=== PATIENT | male | born 1965 | race Caucasian/White ===

== ENCOUNTER 2016-05-17 09:47 | Emergency (ER) | payer OTHER ==
[~2016-05-17 09:47] MED LIST: ACETAMINOPHEN325 MG PO; ASPIR 8181 MG PO; COREG6.25 MG PO; CYCLOBENZAPRINE10 MG PO; JANUVIA100 MG PO; KLONOPIN0.5 MG PO; LANTUS100 UNIT/1 SQ; LIPITOR80 MG PO; NEURONTIN800 MG PO; PLAVIX75 MG PO; PRINIVIL10 MG PO; PROZAC40 MG PO; TRAZODONE HCL100 MG PO; VENTOLIN HFA8 GM IH
== END 2016-05-17 10:26 | disposition home or self-care (01) ==
LOC: ER 09:47
DX: S63.502A Unspecified sprain of left wrist, initial encounter (principal); E11.9 Type 2 diabetes mellitus without complications; I25.2 Old myocardial infarction; I11.0 Hypertensive heart disease with heart failure; I50.9 Heart failure, unspecified; E66.01 Morbid (severe) obesity due to excess calories; F17.210 Nicotine dependence, cigarettes, uncomplicated; Z87.442 Personal history of urinary calculi; Z95.1 Presence of aortocoronary bypass graft; Z79.82 Long term (current) use of aspirin; Z79.4 Long term (current) use of insulin; Z79.899 Other long term (current) drug therapy; Z91.041 Radiographic dye allergy status; W51.XXXA Accidental striking against or bumped into by another person, initial encounter